=== PATIENT | female | born 1960 | race Caucasian/White ===

== ENCOUNTER 2023-11-04 09:38 | Outpatient (CLI) | payer MEDICARE | END 2023-11-04 23:59 | disposition home or self-care (01) | LOC: MRI 09:38 | PROVIDERS: ATTEND Family Medicine Sports Medicine | DX: S62.001A Unspecified fracture of navicular [scaphoid] bone of right wrist, initial encounter for closed fracture (principal); M25.531 Pain in right wrist; M67.431 Ganglion, right wrist; M77.8 Other enthesopathies, not elsewhere classified; X58.XXXA Exposure to other specified factors, initial encounter; Y93.89 Activity, other specified; Y92.89 Other specified places as the place of occurrence of the external cause; Y99.8 Other external cause status | CPT/HCPCS: 73221 ==